=== PATIENT | female | born 1990 | race Caucasian/White ===

== ENCOUNTER 2020-06-29 16:34 | Outpatient (REF) | payer OTHER, SELFPAY ==
--- NOTE | ~2020-06-29 | XR_ITS ---
EXAMINATION: LEFT FOOT AND ANKLE X-RAY CLINICAL INFORMATION: Injury COMPARISON: None TECHNIQUE: 3 views of the left foot and 3 views of the left ankle FINDINGS: Left ankle: Bone alignment is normal. No fracture or dislocation is seen. The ankle mortise is normal. Soft tissues are normal. Left foot: Bone alignment is normal. No fracture or dislocation is seen. Joint spaces are normal. There is a small plantar calcaneal spur. Soft tissues are otherwise normal. XR/XR foot LT min 3V IMPRESSION: No fracture or dislocation.
--- NOTE | ~2020-06-29 | XR_ITS ---
EXAMINATION: LEFT FOOT AND ANKLE X-RAY CLINICAL INFORMATION: Injury COMPARISON: None TECHNIQUE: 3 views of the left foot and 3 views of the left ankle FINDINGS: Left ankle: Bone alignment is normal. No fracture or dislocation is seen. The ankle mortise is normal. Soft tissues are normal. Left foot: Bone alignment is normal. No fracture or dislocation is seen. Joint spaces are normal. There is a small plantar calcaneal spur. Soft tissues are otherwise normal. XR/XR ankle LT 2V IMPRESSION: No fracture or dislocation.
== END 2020-06-29 16:35 | disposition home or self-care (01) ==
LOC: HO.HMGCX 16:34
PROVIDERS: Visit Provider Nurse Practitioner Family
DX: S99.929A Unspecified injury of unspecified foot, initial encounter (principal); S99.919A Unspecified injury of unspecified ankle, initial encounter
CPT/HCPCS: 73600; 73630

== ENCOUNTER 2021-03-01 16:10 | Outpatient (REF) | payer OTHER, SELFPAY ==
--- NOTE | ~2021-03-01 | MR_ITS ---
EXAMINATION: MR BREAST WITHOUT AND WITH CONTRAST, BILATERAL CLINICAL INFORMATION: Six-month follow-up of probably benign bilateral findings. COMPARISON: MRI 12/01/2019 TECHNIQUE: Imaging was performed with a dedicated breast coil. Prior to the administration of contrast, bilateral axial T1 and bilateral axial T2 weighted sequences were obtained. After the uneventful administration of?10 mL of Gadavist, dynamic contrast-enhanced VIBRANT series through the breasts in the axial plane were performed. Subtracted images were performed and reviewed. A delayed sagittal sequence through both breasts was acquired. Additionally, CAD post-processing, including maximum intensity projections, 3-D reconstructions and kinetic analysis, were performed an independent workstation and reviewed by the interpreting radiologist is a portion of this exam. FINDINGS: The patient's fibroglandular tissue demonstrates diffuse moderate background parenchymal enhancement. LEFT BREAST: Stable T2 hyperintense focus of enhancement, left breast, 3:00, mid to posterior depth, consistent with an intramammary lymph node. The previously described foci of enhancement in the left breast are less conspicuous to not present on the current exam. No suspicious masslike or non-masslike enhancement. No abnormal skin thickening or nipple retraction. No abnormal architectural distortion. Review of the T2 weighted images demonstrates no fibrocystic changes or dilated ducts. Review of kinetic images reveals no additional findings. RIGHT BREAST: No persistent focus of enhancement in the right breast, 12:00. No suspicious masslike or non-masslike enhancement. No abnormal skin thickening or nipple retraction. No abnormal architectural distortion. Review of the T2 weighted images demonstrates no fibrocystic changes or dilated ducts. Review of kinetic images reveals no additional findings. There is no suspicious internal mammary chain or axillary adenopathy. Limited views of the chest and abdomen are unremarkable. MR/MR breast BI wo/w con IMPRESSION: The previously described probably benign findings or no longer seen or characterized to be benign on the current examination. No MR specific evidence of malignancy in either breast. ASSESSMENT: LEFT BREAST: BI-RADS 2 - Benign Findings. RIGHT BREAST: BI-RADS 1-Negative RECOMMENDATIONS: Clinical follow-up. Further breast MRI as risk factors dictate.
== END 2021-03-01 16:11 | disposition home or self-care (01) ==
LOC: HO.MRI 16:10
PROVIDERS: Visit Provider Surgery
DX: R92.8 Other abnormal and inconclusive findings on diagnostic imaging of breast (principal); N63.25 Unspecified lump in the left breast, overlapping quadrants; Z91.89 Other specified personal risk factors, not elsewhere classified
CPT/HCPCS: 77049; A9585

== ENCOUNTER 2021-05-03 16:00 | Outpatient (RCR) | payer OTHER, SELFPAY ==
--- NOTE | 2021-03-11 15:33 | MHC.PT.EP ---
[facility] [place] Office [place] Office [place] Office [address] Gabi Medina [address] [phone] F: [phone] F: [phone] F: [phone] F: [phone] Physical Therapy Plan of Care Date of Evaluation: Date of Surgery: Diagnosis: RIGHT SIDED LBP-PT FOR LUMBAR AND CORE STABILIZATION, HIP FLEXOR STRETCHING, GLUTE MED AND QUAD STRENGTHENING Assessment: 31 YO FEMALE REF TO PT FOR LBP W Rt SCIATICA, PROGRESSIVE x 2 MONTHS. 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 OBJECTIVE FINDINGS: DECR TRUNK AROM, (+) LUMBOPELVIC ASYMM, DECR STRENGTH IN HELENA HIP ROTAT AND CORE MM ((+) hamstring dominance), (+) SOFT TISSUE IRRIT IN Rt > Lt THLS PS MM, AND DECR POSTURAL AWARENESS. Pt HAS DECR NEEL TO INCR STANDING, SHE TENDS TO USE TRUNK FLEX VS FUNCT SQUAT W ADLS/ WORK TASKS, AND IS LIMITED W LIFTING HEAVIER OBJECTS FROM THE FLOOR. Pt DENIES B&B SIGNS/ SXS. SHE WOULD BENEFIT FROM PT TO ADDRESS THE ABOVE FINDINGS AND DEV SX/PAIN MGMT STRATEGIES. Frequency and Duration: The patient will be seen 2 x WK x 5 WKS Short Term Goals: Pt'S LBP DECR TO 2-07/07 AND Rt LE SXS DECR BY 75% IN 2 WKS Pt DEMON PROPER BODY MECH (FUNCT SQUAT TECHN ) W 3:3 SIMUL WORK TASKS-IE POSITIONING IN OR WELL OFFICE IN 3 WKS Pt INCR LUMBOPELVIC AND HIP IR/ER STRENGTH AND STAB -> WFL PELVIC SYMMETRY IN 3 WKS Pt DEMON WFL AROM TRUNK AND WFL Rt HS FLEXIB IN 2 WKS Care Home Goals: Pt INDEP W HEP AND PROGR STRENGTHENING EXER, SX MGMT STRATEGIES IN 5 WKS Pt INCREASE FUNCT MOB NEEL EVIDENT W IMPROVED OSWESTRY BY 5 POINTS IN 5 WKS Treatment Plan: Modalities to reduce pain, spasms and effusion. Manual therapy to restore motion and function. Therapeutic exercise to improve strength and flexibility. Neuromuscular re-education for posture and balance. Therapeutic activities to return to functional activities of daily living. Electronically signed by: Evelyne Wong PT Please sign and return to therapist. Thank you for your referral.
--- NOTE | 2021-06-16 10:38 | MHC.PT.DC ---
[facility] [place] Office [place] Office [place] Office [address] Gabi Medina [address] [phone] F: [phone] F: [phone] F: [phone] F: [phone] Physical Therapy Discharge Report Diagnosis: RIGHT SIDED LBP-PT FOR LUMBAR AND CORE STABILIZATION, HIP FLEXOR STRETCHING, GLUTE MED AND QUAD STRENGTHENING Date of Surgery: Date of Evaluation: 03/11/21 Date of Discharge: 06/16/21 Treatments to Date: 10 Cancellations to Date: 5 No Shows to Date: 1 Discharge Status: Improved Function Independent with HEP Discharge Summary: The patient overall reported little improvement with physical therapy intervention. She is independent with her home exercise program including thoracolumbar and pelvic stretching as well as core and pelvic stability exercises. She was educated on being mindful of her posture when in the OR and when sitting at work. She has not followed up with any further appointments in over a month. She is discharged from this physical therapy plan of care at this time. Electronically signed by: Denisse Hunt PT, DPT Please sign and return to therapist. Thank you for your referral.
== END 2021-06-16 10:38 | disposition home or self-care (01) ==
LOC: HO.PT 16:00
PROVIDERS: Visit Provider Physician Assistant
DX: M54.41 Lumbago with sciatica, right side (principal)
CPT/HCPCS: 97012; 97014; 97110; 97140; 97162

== ENCOUNTER 2022-03-20 16:16 | Outpatient (REF) | payer OTHER, SELFPAY ==
--- NOTE | ~2022-03-20 | MR_ITS ---
EXAMINATION: MR BREAST WITHOUT AND WITH CONTRAST, BILATERAL CLINICAL INFORMATION: High-risk for breast cancer, genetic mutation COMPARISON: 03/01/2021 TECHNIQUE: Imaging was performed with a dedicated breast coil. Prior to the administration of contrast, bilateral axial T1 and bilateral axial T2 weighted sequences were obtained. After the uneventful administration of?9 mL of Gadavist, dynamic contrast-enhanced VIBRANT series through the breasts in the axial plane were performed. Subtracted images were performed and reviewed. A delayed sagittal sequence through both breasts was acquired. Additionally, CAD post-processing, including maximum intensity projections, 3-D reconstructions and kinetic analysis, were performed an independent workstation and reviewed by the interpreting radiologist is a portion of this exam. FINDINGS: The patient's fibroglandular tissue demonstrates moderate background enhancement. LEFT BREAST: No suspicious masslike or non-masslike enhancement. No abnormal skin thickening or nipple retraction. No abnormal architectural distortion. Review of the T2 weighted images demonstrates no fibrocystic changes or dilated ducts. Review of kinetic images reveals no additional findings. RIGHT BREAST: No suspicious masslike or non-masslike enhancement. No abnormal skin thickening or nipple retraction. No abnormal architectural distortion. Review of the T2 weighted images demonstrates no fibrocystic changes or dilated ducts. Review of kinetic images reveals no additional findings. There is no suspicious internal mammary chain or axillary adenopathy. Limited views of the chest and abdomen are unremarkable. There has been no interval change. MR/MR breast BI wo/w con IMPRESSION: No MR specific evidence of malignancy. ASSESSMENT: LEFT BREAST: BI-RADS 1-Negative RIGHT BREAST: BI-RADS 1-Negative RECOMMENDATIONS: Yearly MRI as clinical risk factors dictate.
== END 2022-03-20 16:17 | disposition home or self-care (01) ==
LOC: HO.MRI 16:16
PROVIDERS: Visit Provider Surgery
DX: R92.2 Inconclusive mammogram (principal); Z91.89 Other specified personal risk factors, not elsewhere classified
CPT/HCPCS: 77049; A9585

== ENCOUNTER 2022-04-07 13:02 | Outpatient (REF) | payer OTHER, SELFPAY ==
--- NOTE | ~2022-04-07 | MM_ITS ---
EXAMINATION: MM SCREENING DIGITAL BREAST TOMOSYNTHESIS, BILATERAL CLINICAL INFORMATION: Age 32. TC score 20%. Family history of breast cancer. HOXB13 gene. COMPARISON: No prior mammography. Comparison is made with bilateral breast MRI 03/20/2022 (BI-RADS 1). TECHNIQUE: Digital breast tomosynthesis is performed in both the craniocaudal and mediolateral oblique views along with computer-aided detection (CAD). Synthesized 2D images are generated from the tomosynthesis. Additional exaggerated left CC and left MLO views are provided. FINDINGS: There are scattered areas of fibroglandular density (ACR BI-RADS breast composition Category b). The left CC views show subtle small asymmetric density anterior medial breast within 3 cm of nipple. There is no correlate on MLO view or on recent MRI. Finding is likely related to summation artifact. As this represents initial baseline mammography, patient will be recalled to fully characterize baseline appearance. The remainder of the breasts show no asymmetric density, mass, or architectural abnormality. There are no abnormal calcifications. The axilla and skin contours are unremarkable. MM/MM tomosynthesis screening BI IMPRESSION: Left: -Asymmetric density anterior medial breast within 3 cm of nipple, likely summation artifact. Right: -No mammographic evidence of malignancy. ASSESSMENT: BI-RADS 0: Incomplete - Need Additional Imaging Evaluation RECOMMENDATION: 1. Additional views of the left breast (spot CC). 2. Targeted ultrasound if warranted after review of the additional views. 3. Radiology department staff will contact the patient for additional imaging. This patient's information was entered into a reminder system with a target due date for their next mammogram.
== END 2022-04-07 13:03 | disposition home or self-care (01) ==
LOC: HO.MAMMO 13:02
PROVIDERS: PCP Family Medicine; Visit Provider Surgery
DX: Z12.31 Encounter for screening mammogram for malignant neoplasm of breast (principal)
CPT/HCPCS: 77063; 77067

== ENCOUNTER 2022-04-11 11:50 | Outpatient (REF) | payer OTHER, SELFPAY ==
--- NOTE | ~2022-04-11 | MM_ITS ---
EXAMINATION: MM DIAGNOSTIC DIGITAL BREAST TOMOSYNTHESIS, LEFT CLINICAL INFORMATION: Recall for high risk baseline screening for asymmetric density anterior medial left breast likely summation artifact. Age 32. Family history of breast cancer. HOXB13 gene. COMPARISON: Mammography: 04/07/2022 (baseline), bilateral breast MR 03/20/2022 (BI-RADS 1). TECHNIQUE: Digital breast tomosynthesis is performed. 2D images are generated from the tomosynthesis. The following views are obtained: Spot CC. FINDINGS: There are scattered areas of fibroglandular density (ACR BI-RADS breast composition Category b). The additional view demonstrates no persistent asymmetric density. There is normal-appearing fibroglandular pattern similar to the MR. No mass or architectural abnormality. Results are discussed with the patient at time of visit. MM/MM tomosynthesis added views L IMPRESSION: No mammographic evidence of malignancy. ASSESSMENT: BI-RADS 1: Negative RECOMMENDATION: Routine annual mammography screening and breast MR as clinical risk factors warrant. This patient's information was entered into a reminder system with a target due date for their next mammogram.
== END 2022-04-11 11:51 | disposition home or self-care (01) ==
LOC: HO.MAMMO 11:50
PROVIDERS: PCP Family Medicine; Visit Provider Surgery
DX: R92.8 Other abnormal and inconclusive findings on diagnostic imaging of breast (principal); Z91.89 Other specified personal risk factors, not elsewhere classified
CPT/HCPCS: 77061; 77065

== ENCOUNTER 2022-04-20 13:23 | Outpatient (REF) | payer OTHER, SELFPAY | END 2022-04-20 13:24 | disposition home or self-care (01) | LOC: HO.MAMMO 13:23 | PROVIDERS: Visit Provider Family Medicine | DX: R92.2 Inconclusive mammogram (principal) | CPT/HCPCS: 76641 ==

== ENCOUNTER 2022-10-17 12:11 | Outpatient (REF) | payer OTHER, SELFPAY ==
--- NOTE | ~2022-10-17 | MR_ITS ---
EXAMINATION: MR BREAST WITHOUT AND WITH CONTRAST, BILATERAL CLINICAL INFORMATION: High-risk screening. Genetic susceptibility to breast cancer. COMPARISON: 03/20/2022. 03/01/2021. 12/01/2019. HOXB13 gene mutation. Family history of breast cancer (2 aunts premenopausal). Dense breasts. TECHNIQUE: Imaging was performed with a dedicated breast coil. Prior to the administration of contrast, bilateral axial T1 and bilateral axial T2 weighted sequences were obtained. After the uneventful administration of?8.5 mL of Gadavist, dynamic contrast-enhanced VIBRANT series through the breasts in the axial plane were performed. Subtracted images were performed and reviewed. A delayed sagittal sequence through both breasts was acquired. Additionally, CAD post-processing, including maximum intensity projections, 3-D reconstructions and kinetic analysis, were performed an independent workstation and reviewed by the interpreting radiologist is a portion of this exam. FINDINGS: The breasts are comprised of heterogeneous, dense fibroglandular parenchyma. The tissue undergoes moderate background enhancement. LEFT BREAST: No suspicious mass, dominant non-mass enhancement or architectural distortion. Small masses previously noted at 3 o'clock and 9 o'clock are stable. Additional small scattered foci are either stable or decreased in conspicuity compared with 2020. A non-mass enhancement at 1 o'clock (series 105 image 38/108) has the appearance of a vascular structure. No skin thickening or nipple retraction. RIGHT BREAST: An oval circumscribed 4 mm focus at 10 o'clock, 1 cm from the nipple (series 105 image 61/108) has increased in conspicuity compared with prior exams. Focus is T2 bright but demonstrates type III rapid washout enhancement kinetics. Recommend MR directed diagnostic second look ultrasound and biopsy as indicated. There is no suspicious internal mammary chain or axillary adenopathy. Limited views of the chest and abdomen are unremarkable. MR/MR breast BI wo/w con IMPRESSION: A progressive dominant 4 mm focus in the retroareolar 10 o'clock position right breast 1 cm from the nipple. ASSESSMENT: LEFT BREAST: BI-RADS 2, benign findings. RIGHT BREAST: BI-RADS 4, suspicious finding. RECOMMENDATIONS: 1. Recommend MR directed diagnostic second look right breast ultrasound at 10 o'clock 1 cm from the nipple. 2. Recommend biopsy as indicated. Results called to referring clinician, Radha Martin RN at 9:30 on 10/19/2022.
== END 2022-10-17 12:12 | disposition home or self-care (01) ==
LOC: HO.MRI 12:11
PROVIDERS: PCP Family Medicine; Visit Provider Surgery
DX: Z12.31 Encounter for screening mammogram for malignant neoplasm of breast (principal); Z80.3 Family history of malignant neoplasm of breast; Z91.89 Other specified personal risk factors, not elsewhere classified
CPT/HCPCS: 77049; A9585

== ENCOUNTER 2023-04-20 13:16 | Outpatient (REF) | payer OTHER, SELFPAY ==
--- NOTE | ~2023-04-20 | MM_ITS ---
EXAMINATION: MM SCREENING DIGITAL BREAST TOMOSYNTHESIS, BILATERAL CLINICAL INFORMATION: Screening. Asymptomatic. COMPARISON: Mammography: This study is compared with prior exams dating back to 2021. TECHNIQUE: Digital breast tomosynthesis is performed in both the craniocaudal and mediolateral oblique views along with computer-aided detection (CAD). Synthesized 2D images are generated from the tomosynthesis. FINDINGS: There are scattered areas of fibroglandular density (ACR BI-RADS breast composition Category b). There are no significant masses, abnormal calcifications, or other abnormalities. There is a tissue marker in the superficial third of the upper outer quadrant of the right breast from prior benign percutaneous biopsy. MM/MM tomosynthesis screening BI IMPRESSION: No mammographic evidence of malignancy. ASSESSMENT: BI-RADS BI-RADS 2 - Benign Findings RECOMMENDATION: Routine annual mammography screening. 1 year F/U This examination should not preclude the clinical evaluation of a suspicious palpable abnormality. This patient's information was entered into a reminder system with a target due date for their next mammogram.
== END 2023-04-20 13:17 | disposition home or self-care (01) ==
LOC: HO.MAMMO 13:16
PROVIDERS: PCP Family Medicine; Visit Provider Surgery
DX: Z12.31 Encounter for screening mammogram for malignant neoplasm of breast (principal)
CPT/HCPCS: 77063; 77067

== ENCOUNTER → 2023-04-20 13:30 | Outpatient (BNV) | payer OTHER, SELFPAY | PROVIDERS: PCP Family Medicine; Visit Provider Radiology Diagnostic Radiology | DX: Z12.31 Encounter for screening mammogram for malignant neoplasm of breast (principal) | CPT/HCPCS: 77063; 77067 ==

== ENCOUNTER 2023-08-02 07:56 | Outpatient (REF) | payer OTHER, SELFPAY ==
[2023-08-02 08:24] LABS: Basophils Absolute Auto 0.1 X10*3/uL (0.0-0.2); Basophils Percent Auto 0.8 % (0-2); Eosinophils Absolute Auto 0.3 X10*3/uL (0.0-0.4); Eosinophils Percent Auto 3.3 % (0-4); Hematocrit 42.1 % (37.0-47.0); Hemoglobin 14.2 g/dl (12.0-16.0); Imm Gran Abs Auto 0.02 X10*3/uL (0.00-0.03); Imm Gran Pct Auto 0.3 % (0.0-0.4); Lymphocytes Absolute Auto 2.3 X10*3/uL (1.2-4.9); Lymphocytes Percent Auto 30.1 % (20-40); MANUAL DIFF FLAG NO; Mean Corpuscular HGB Conc 33.7 g/dl (31.0-35.0); Mean Corpuscular Hemoglobin 30.2 pg (27.0-33.0); Mean Corpuscular Volume 89.6 fL (80.0-98.0); Mean Platelet Volume 8.7 fL (9.4-12.3); Monocytes Absolute Auto 0.5 X10*3/uL (0.1-1.2); Monocytes Percent Auto 7.1 % (2-11); Neutrophils Absolute Auto 4.5 x10*3/uL (2.0-8.3); Neutrophils Percent Auto 58.4 % (45-73); Platelet Count 362 X10*3/uL (160-400); Red Cell Distribution Width 12.9 % (11.0-16.0); White Blood Count 7.6 X10*3/uL (4.8-10.8)
[2023-08-02 08:45] LABS: Alanine Aminotransferase 15 U/L (0-31); Albumin Level 3.9 g/dL (3.5-5.0); Alkaline Phosphatase 64 U/L (39-117); Anion Gap 9 (12-20); Aspartate Amino Transferase 16 U/L (5-31); Bilirubin Total 0.4 mg/dL (0.0-1.0); Blood Urea Nitrogen 15 mg/dL (9-16); C Reactive Protein 0.83 mg/dL (< or = 0.50); Calcium 9.2 mg/dL (8.4-10.2); Carbon Dioxide 24 mmol/L (22-29); Chloride 108 mmol/L (96-108); Cholesterol 179 mg/dL (<200); Estimated Glomerular Filt Rate > 60; Gamma Glutamyl Transpeptidase 19 U/L (7-33); Glucose Random 106 mg/dL (60-115); HDL Cholesterol 44 mg/dL (>40); Iron 69 mcg/dL (30-160); LDL Cholesterol Calculated 116 mg/dL (<100); Percent Iron Saturation 28 % (15-50); Potassium 3.9 mmol/L (3.3-5.1); Sodium 137 mmol/L (135-145); Total Iron Binding Capacity 250 mcg/dL (228-428); Total Protein 6.9 g/dL (6.5-8.0); Triglycerides 99 mg/dL (<150); Unsaturated Iron Binding 181 ug/dL
[2023-08-02 08:46] LABS: Parathyroid Hormone Intact 79.3 pg/mL (8.7-77.1)
[2023-08-02 09:01] LABS: Ferritin 87 ng/mL (10-122); Free T4 (Free Thyroxine) 0.92 ng/dL (0.71-1.85); Insulin 11 uU/mL (2-29); Thyroid Stimulating Hormone 0.72 uIU/mL (0.32-4.0); Vitamin D 25-OH Total 23.5 ng/mL (>30)
[2023-08-03 07:28] LABS: Triiodothyronine T3 Free 3.6 pg/mL (2.3-4.2)
[2023-08-03 08:34] LABS: DHEA Sulfate 158 mcg/dL (19-237); Lutenizing Hormone 3.4 mIU/mL
[2023-08-03 18:34] LABS: Homocysteine 8.9 umol/L (<10.4)
[2023-08-06 19:13] LABS: Testosterone, Free 2.8 pg/mL (0.1-6.4); Testosterone, Total 19 ng/dL (2-45)
[2023-08-06 20:08] LABS: Thyroglobulin Antibodies <1 IU/mL (< or = 1); Thyroid Peroxidase Antibodies 1 IU/mL (<9)
[2023-08-09 13:38] LABS: Methylmalonic Acid 102 nmol/L (87-318)
[2023-08-10 02:28] LABS: Estradiol Ultra Sensitive 124 pg/mL
[2023-08-11 15:58] LABS: Triiodothyronine T3 Reverse 18 ng/dL (8-25)
[2023-08-14 03:03] LABS: Dihydrotestosterone <10 ng/dL (< OR = 20)
[2023-08-15 01:44] LABS: Progesterone 9.5 ng/mL
== END 2023-08-02 07:57 | disposition home or self-care (01) ==
LOC: HO.LAB 07:56
PROVIDERS: PCP Family Medicine; Visit Provider Internal Medicine
DX: E03.9 Hypothyroidism, unspecified (principal); F32.81 Premenstrual dysphoric disorder; E28.2 Polycystic ovarian syndrome; D64.9 Anemia, unspecified; E55.9 Vitamin D deficiency, unspecified; E11.9 Type 2 diabetes mellitus without complications; E78.6 Lipoprotein deficiency; K76.0 Fatty (change of) liver, not elsewhere classified; R53.83 Other fatigue
CPT/HCPCS: 36415; 80053; 80061; 82306; 82627; 82642; 82670; 82728; 82977; 83001; 83002; 83090; 83525; 83540; 83921; 83970; 84144; 84402; 84403; 84439; 84443; 84481; 84482; 85025; 86140; 86376; 86800

== ENCOUNTER 2024-02-22 13:24 | Outpatient (REF) | payer OTHER, SELFPAY ==
--- NOTE | ~2024-02-22 | MR_ITS ---
EXAMINATION: MR BREAST WITHOUT AND WITH CONTRAST, BILATERAL CLINICAL INFORMATION: 33-year-old for high-risk screening, genetic susceptibility for breast cancer. Status post benign biopsy right breast. COMPARISON: MRI 10/17/2022 and 07/18/2019. TECHNIQUE: Imaging was performed with a dedicated breast coil. Prior to the administration of contrast, bilateral axial T1 and bilateral axial T2 weighted sequences were obtained. After the uneventful administration of 10 mL of Gadavist, dynamic contrast-enhanced VIBRANT series through the breasts in the axial plane were performed. Subtracted images were performed and reviewed. A delayed sagittal sequence through both breasts was acquired. Additionally, CAD post-processing, including maximum intensity projections, 3-D reconstructions and kinetic analysis, were performed an independent workstation and reviewed by the interpreting radiologist is a portion of this exam. FINDINGS: The patient's fibroglandular tissue demonstrates moderate background enhancement. LEFT BREAST: No suspicious masslike or non-masslike enhancement. No abnormal skin thickening or nipple retraction. No abnormal architectural distortion. Review of the T2 weighted images demonstrates no fibrocystic changes or dilated ducts. Review of kinetic images reveals no additional findings. RIGHT BREAST: The previously described mass at 10 o'clock, 1 cm from the nipple, is no longer visualized. This was biopsied. There is a susceptibility artifact in the area with no associated enhancement. No new suspicious masslike or non-masslike enhancement. No abnormal skin thickening or nipple retraction. No abnormal architectural distortion. Review of the T2 weighted images demonstrates no fibrocystic changes or dilated ducts. Review of kinetic images reveals no additional findings. There is no suspicious internal mammary chain or axillary adenopathy. Limited views of the chest and abdomen are unremarkable. MR/MR breast BI wo/w con IMPRESSION: No new MR findings suspicious of malignancy in either breast. ASSESSMENT: LEFT BREAST: BI-RADS 1-Negative RIGHT BREAST: BI-RADS 2 benign RECOMMENDATIONS: Routine mammographic imaging as per most recent study and MRI as per high-risk protocol. Electronically signed by: Rudy Riggs MD 03/18/2024 02:59 PM [facility]
[2024-02-22] MEDS: gadobutroL 10 ML VIAL IVPUSH (14:21)
== END 2024-02-22 13:25 | disposition home or self-care (01) ==
LOC: HO.MRI 13:24
PROVIDERS: PCP Family Medicine; Visit Provider Surgery
DX: R92.8 Other abnormal and inconclusive findings on diagnostic imaging of breast (principal); Z91.89 Other specified personal risk factors, not elsewhere classified; Z80.3 Family history of malignant neoplasm of breast
CPT/HCPCS: 77049; A9585

== ENCOUNTER 2024-07-17 15:40 | Outpatient (REF) | payer OTHER, SELFPAY ==
--- OUTSIDE RECORDS SUMMARY | 2024-07-17 17:51 | XMS_ITS | Encounter Summary ---
Author Organization [facility] Address [address] [place] [address] Care Team Providers Care Active Directory Administrator Name Role Phone Coretta Sam MD Primary Care Provider [phone] Gerry Duenas MD Primary Care Provider [phone] Reason for Visit * Reason Comments Other Request Order Encounter Details Date Type Department Care Team (Late Contact Info) Description 04/11/2022 Telephone [facility] Breast Care & Surgery [address] [phone] Diana Maloney MD [address] [place] [phone] Other (Request Order) Social History Tobacco Use Types Packs/Day Years Used Date Smoking Tobacco: Never Smokeless Tobacco: Never Alcohol Use Standard Drinks/Week Comments No 0 (1 standard drink = 0.6 oz pur e alcohol) PHQ-2 Answer Date Recorded PHQ-2 Total Score 0 02/19/2020 Sex and Gender Information Value Date Recorded Sex Assigned at Female 06/05/2024 12:16 PM EST Gender Identity Not on file Sexual Orientation Not on file documented as of this encounter Plan of Treatment Upcoming Encounters Date Type Department Care Team ([facility] Contact Info) Description 06/05/2025 1:30 PM EST Office Visit [facility] Breast [facility] & Surgery [address] [phone] Diana Maloney MD [address] [place] [phone] documented as of this encounter Visit Diagnoses Not on filedocumented in this encounter Care Teams Active Directory Administrator Relationship Specialty Start Date End Date Coretta Sam MD [address] [facility] [place] [address] PCP - General Pediatric, General 07/17/18 05/31/22 Gerry Duenas MD [address] [facility] [address] [place] [address] PCP - General Internal Medicine 06/01/22 documented as of this encounter
--- OUTSIDE RECORDS SUMMARY | 2024-07-17 17:51 | XMS_ITS | Encounter Summary ---
Author Organization [facility] Address [address] [place] [address] Care Team Providers Care Simulation Technician Name Role Phone Coretta Sam MD Primary Care Provider [phone] Gerry Duenas MD Primary Care Provider [phone] Reason for Visit * Reason Onset Date Comments Medication Refill 02/14/2022 Encounter Details Date Type Department Care Team (Late st Contact Info) Description 02/14/2022 Refill [facility] [address] [phone] Mirna Broussard, HOSPICE RN [address] [address] Migraine without aura, intractable, without status migrainosus Social History Tobacco Use Types Packs/Day Years [...] on file documented as of this encounter Miscellaneous Notes * Telephone Encounter - Abbe Saeed MD - 02/14/2022 10:10 AM EDT No recent dispenses in over 6 months. documented in this encounter Plan of Treatment Upcoming Encounters Date Type Department Care Team (Late st Contact Info) Description 06/05/2025 1:30 PM EST Office Visit [facility] Breast [facility] [place] [address] [place] [phone] Diana Maloney MD [address] [place] [address] documented as of this encounter Visit Diagnoses Diagnosis Migraine without aura, intractable, without status migrainosus documented in this encounter Care Teams Simulation Technician Relationship Specialty Start Date End Date Coretta Sam MD [address] [facility] [place] [address] [place] [address] PCP - General Pediatric, General 07/17/18 05/31/22 Gerry Duenas MD [address] [place] [address] [address] [place] [address] PCP - General Internal Medicine 06/01/22 documented as of this encounter
--- OUTSIDE RECORDS SUMMARY | 2024-07-17 17:51 | XMS_ITS | Encounter Summary ---
Author Organization [facility] Address [address] [place] [address] Care Team Providers Care City Assessor Name Role Phone Gerry Duenas MD Primary Care Provider [phone] Reason for Visit * Reason Comments Medication Refill Encounter Details Date Type Department Care Team (Late st Contact Info) Description 11/18/2022 Refill [facility] [address] [phone] Sherrie Cuellar MD [address] [place] [phone] Migraine without aura, intractable, without status migrainosus [...] EST Office Visit [facility] Breast Care & Surgery [place] [address] [place] [phone] Diana Maloney MD [address] [place] [address] documented as of this encounter Visit Diagnoses Diagnosis Migraine without aura, intractable, without status migrainosus documented in this encounter Care Teams City Assessor Relationship Specialty Start Date End Date Gerry Duenas MD [address] [facility] [address] [place] [address] PCP - General Internal Medicine 06/01/22 documented as of this encounter
--- OUTSIDE RECORDS SUMMARY | 2024-07-17 17:51 | XMS_ITS | Clinical Summary ---
Author Organization [facility] Address [address] [place] [address] Care Team Providers Care Bias Cutter Name Role Phone Unavailable Primary Care Provider Unavailabl e Social History Tobacco Use Types Packs/Day Years Used Date Smoking Tobacco: Never Assessed Sex and Gender Information Value Date Recorded Sex Assigned at Not on file Gender Identity Not on file Sexual Orientation Not on file Plan of Treatment Not on file
--- OUTSIDE RECORDS SUMMARY | 2024-07-17 17:51 | XMS_ITS | Encounter Summary ---
Author Organization [facility] Address [address] [place] [address] Care Team Providers Care First Responder Name Role Phone Coretta Sam MD Primary Care Provider [phone] Gerry Duenas MD Primary Care Provider [phone] Reason for Visit * Reason Comments Medication Refill Encounter Details Date Type Department Care Team (Late st Contact Info) Description 01/08/2021 Refill [facility] [address] [phone] Mirna Broussard, JUMPBASTING LINING BASTER [address] [address] Migraine without aura, intractable, without status migrainosus [...] encounter Miscellaneous Notes * Telephone Encounter - Allyson Mayberry - 01/10/2021 12:52 PM EDT Call to patient left message on voicemail to call office. documented in this encounter Plan of Treatment Upcoming Encounters Date Type Department Care Team (Late st Contact Info) Description 06/05/2025 1:30 PM EST Office Visit [facility] Breast Care & Surgery [place] [address] [place] [address] Diana Maloney MD [address] [place] [address] documented as of this encounter Visit Diagnoses Diagnosis Migraine without aura, intractable, without status migrainosus documented in this encounter Care Teams First Responder Relationship Specialty Start Date End Date Coretta Sam MD [address] [facility] [place] [address] [place] [address] PCP - General Pediatric, General 07/17/18 05/31/22 Gerry Duenas MD 175 [facility] 200 [place] [address] PCP - General Internal Medicine 06/01/22 documented as of this encounter
--- OUTSIDE RECORDS SUMMARY | 2024-07-17 17:51 | XMS_ITS | Encounter Summary ---
Author Organization [facility] Address [address] [place] [address] Care Team Providers Care Technical Professional Name Role Phone Gerry Duenas MD Primary Care Provider [phone] Reason for Visit * Reason Onset Date Comments Medication Refill 09/21/2022 Encounter Details Date Type Department Care Team ([facility] st Contact Info) Description 09/21/2022 Refill [facility] [address] [address] Sherrie Cuellar MD [facility] [address] [address] Migraine without aura, intractable, without status migrainosus [...] encounter Miscellaneous Notes * Telephone Encounter - Catia Newsome LPN - 09/26/2022 12:07 PM EDTSummary: Need an Appointment Refill request for sumatriptan. Patient has not been seen since 08/12/2021. Was asked to follow up in one year. No appointments booked. documented in this encounter Plan of Treatment Upcoming Encounters Date Type Department Care Team (Late st Contact Info) Description 06/05/2025 1:30 PM EST Office Visit [facility] Breast Care & Surgery [place] [address] [place] [address] Diana Maloney MD [address] [place] [address] documented as of this encounter Visit Diagnoses Diagnosis Migraine without aura, intractable, without status migrainosus documented in this encounter Care Teams Technical Professional Relationship Specialty Start Date End Date Gerry Duenas MD [address] [place] [address] [address] [place] [address] PCP - General Internal Medicine 06/01/22 documented as of this encounter
--- OUTSIDE RECORDS SUMMARY | 2024-07-17 17:51 | XMS_ITS | Encounter Summary ---
Author Organization [facility] Address [address] [place] [address] Care Team Providers Care Concert Manager Name Role Phone Coretta Sam MD Primary Care Provider [phone] Gerry Duenas MD Primary Care Provider [phone] Encounter Details Date Type Department Care Team (Late Contact Info) Description 08/12/2021 Scanned Document [facility] Headache [address] [place] [address] Sherrie Cuellar MD [address] [id number] Social History Tobacco Use Types Packs/Day Years [...] on file Sexual Orientation Not on file COVID-19 Exposure Response Date Recorded In the last 10 days, have yo u been in contact with someone who was confirmed or suspected to have Coronavirus/COVID-19? No / Unsure 08/12/2021 1:29 PM EDT documented as of this encounter Plan of Treatment Upcoming Encounters Date Type Department Care Team (Late Contact Info) Description 06/05/2025 1:30 PM EST Office Visit [facility] Breast Care & Surgery [place] [address] [place] [phone] Diana Maloney MD [address] [place] [address] documented as of this encounter Visit Diagnoses Not on filedocumented in this encounter Care Teams Concert Manager Relationship Specialty Start Date End Date Coretta Sam MD [address] [facility] [place] [address] PCP - General Pediatric, General 07/17/18 05/31/22 Gerry Duenas MD 175 [facility] [address] [place] [address] PCP - General Internal Medicine 06/01/22 documented as of this encounter
--- OUTSIDE RECORDS SUMMARY | 2024-07-17 17:51 | XMS_ITS | Encounter Summary ---
Author Organization [facility] Address [address] [place] [address] Care Team Providers Care Professor Of Theater Name Role Phone Coretta Sam MD Primary Care Provider Geryr Duenas MD Primary Care Provider [phone] Reason for Visit * Reason Onset Date Comments Medication Refill 02/14/2022 Encounter Details Date Type Department Care Team (Late st Contact Info) Description 02/14/2022 Refill [facility] Headache [address] [place] [address] Sherrie Cuellar MD [address] [place] [address] Migraine without aura, intractable, without status migrainosus [...] 06/05/2025 1:30 PM EST Office [facility] Breast [facility] Surgery [address] [phone] Diana Maloney MD [address] [place], [place] [address] documented as of this encounter Visit Diagnoses Diagnosis Migraine without aura, intractable, without status migrainosus documented in this encounter Care Teams Professor Of Theater Relationship Specialty Start Date End Date Coretta Sam MD 520 [facility] [address] PCP - General Pediatric, General 07/17/18 05/31/22 Gerry Duenas MD 175 [facility] [place] [address] [place] [address] PCP - General Internal Medicine 06/01/22 documented as of this encounter
--- OUTSIDE RECORDS SUMMARY | 2024-07-17 17:51 | XMS_ITS | Encounter Summary ---
Author Organization [facility] Address [address] [place] [address] Care Team Providers Care Gizzard Peeler Name Role Phone Gerry Duenas MD Primary Care Provider [phone] Reason for Visit * Reason Onset Date Comments Medication Refill 09/21/2022 Encounter Details Date Type Department Care Team (Late st Contact Info) Description 09/21/2022 Refill [facility] Headache [address] [place] [address] Sherrie Cuellar MD [address] [place] [address] Migraine without aura, intractable, without status migrainosus [...] Office Visit [facility] Breast Care & Surgery [place] [address] [place] [phone] Diana Maloney MD [address] [place], [place] [address] documented as of this encounter Visit Diagnoses Diagnosis Migraine without aura, intractable, without status migrainosus documented in this encounter Care Teams Gizzard Peeler Relationship Specialty Start Date End Date Gerry Duenas MD 175 [facility] [address] [place] [address] PCP - General Internal Medicine 06/01/22 documented as of this encounter
--- OUTSIDE RECORDS SUMMARY | 2024-07-17 17:51 | XMS_ITS | Encounter Summary ---
Author Organization [facility] Address [address] [place] [address] Care Team Providers Care Genetic Technologist Name Role Phone Coretta Sam MD Primary Care Provider [phone] Gerry Duenas MD Primary Care Provider [phone] Encounter Details Date Type Department Care Team (Late Contact Info) Description 02/19/2020 Scanned Document [address] [address] Mirna Broussard, MAGDA [address] [address] Social History Tobacco Use Types Packs/Day Years [...] Exposure Response Date Recorded In the last month, have you been in contact with someone who was confirmed or suspected to have Coronavirus / COVID-19? No / Unsure 02/19/2020 8:40 AM EDT documented as of this encounter Plan of Treatment Upcoming Encounters Date Type Department Care Team (Late Contact Info) Description 06/05/2025 1:30 PM EST Office Visit [facility] Breast Care & Surgery [place] [address] [place] [address] Diana Maloney MD [address] [place] [address] documented as of this encounter Visit Diagnoses Not on filedocumented in this encounter Care Teams Genetic Technologist Relationship Specialty Start Date End Date Coretta Sam MD 520 [facility] [place] [address] PCP - General Pediatric, General 07/17/18 05/31/22 Gerry Duenas MD [address] [address] PCP - General Internal Medicine 06/01/22 documented as of this encounter
--- OUTSIDE RECORDS SUMMARY | 2024-07-17 17:51 | XMS_ITS | Encounter Summary ---
Author Organization [facility] Address [address] [place] [address] Care Team Providers Care Keysmith Name Role Phone Gerry Duenas MD Primary Care Provider [phone] Reason for Visit * Reason Comments Medication Refill Encounter Details Date Type Department Care Team (Late st Contact Info) Description 09/05/2022 Refill [facility] [address] [address] Sherrie Cuellar MD [address] [place] [address] Migraine without aura, intractable, without status migrainosus [...] 1:30 PM EST Office Visit [facility] Breast Care & Surgery [place] [address] [place] [phone] Diana Maloney MD [address] [place] [address] documented as of this encounter Visit Diagnoses Diagnosis Migraine without aura, intractable, without status migrainosus documented in this encounter Care Teams Keysmith Relationship Specialty Start Date End Date Gerry Duenas MD 175 [facility] [address] [place] [address] PCP - General Internal Medicine 06/01/22 documented as of this encounter
--- OUTSIDE RECORDS SUMMARY | 2024-07-17 17:51 | XMS_ITS | Encounter Summary ---
Author Organization [facility] Address [address] [place] [address] Care Team Providers Care Hose Finisher Name Role Phone Coretta Sam MD Primary Care Provider [phone] Gerry Duenas MD Primary Care Provider [phone] Reason for Visit * Reason Comments Medication Refill Encounter Details Date Type Department Care Team (Late st Contact Info) Description 08/02/2021 Refill [facility] [address] [phone] Mirna Broussard APRN [address] [place] [address] Migraine without aura, intractable, without status migrainosus [...] encounter Miscellaneous Notes * Telephone Encounter - Nikunj Cornell APRN - 08/02/2021 2:06 PM EDT Thank you * Telephone Encounter - Cherelle Duggan - 08/02/2021 12:57 PM EDT Patient is already scheduled with Dr. Adenike Portillo for 08/12/21 for a follow up visit. documented in this encounter Plan of Treatment Upcoming Encounters Date Type Department Care Team (Late st Contact Info) Description 06/05/2025 1:30 PM EST Office Visit [facility] Breast Care & Surgery [place] [address] [place] [address] Diana Maloney MD [address] [place] [address] documented as of this encounter Visit Diagnoses Diagnosis Migraine without aura, intractable, without status migrainosus documented in this encounter Care Teams Hose Finisher Relationship Specialty Start Date End Date Coretta Sam MD 520 [facility] [place] [address] [place] [address] PCP - General Pediatric, General 07/17/18 05/31/22 Gerry Duenas MD 175 [facility] [address] [place] [address] PCP - General Internal Medicine 06/01/22 documented as of this encounter
--- OUTSIDE RECORDS SUMMARY | 2024-07-17 17:51 | XMS_ITS | Encounter Summary ---
Author Organization [facility] Address [address] [place] [address] Care Team Providers Care Campus Safety Officer Name Role Phone Coretta Sam MD Primary Care Provider [phone] Gerry Duenas MD Primary Care Provider [phone] Reason for Visit * Reason Comments Medication Refill Encounter Details Date Type Department Care Team (Late st Contact Info) Description 02/28/2021 Refill [facility] [address] [phone] Mirna Broussard, TIMBER WATCHMAN [address] [address] Migraine without aura, intractable, without status migrainosus [...] Description 06/05/2025 1:30 PM EST Office Visit [facility] Breast Care & Surgery [address] [address] Diana Maloney MD [address] [place] [address] documented as of this encounter Visit Diagnoses Diagnosis Migraine without aura, intractable, without status migrainosus documented in this encounter Care Teams Campus Safety Officer Relationship Specialty Start Date End Date Coretta Sam MD [address] [place] [address] PCP - General Pediatric, General 07/17/18 05/31/22 Gerry Duenas MD 175 [facility] [address] [place] [address] PCP - General Internal Medicine 06/01/22 documented as of this encounter
--- OUTSIDE RECORDS SUMMARY | 2024-07-17 17:51 | XMS_ITS | Clinical Summary ---
Author Organization [facility] Address [address] [place] [address] Care Team Providers Care Personal Banker Name Role Phone Gerry Duenas MD Primary Care Provider [phone] Allergies No known active allergies Medications Medication Sig Dispensed Refills Start Date End Date Status propranolol (INDERAL) 20 MG tabletIndications:E ssential tremor,Other headache syndrome Take 1 tablet (20 mg total) by mouth 2 (two) times a day. At breakfast and lunch 180 tablet 3 07/15/2018 Active Additional Information Patient taking differently:20 mg Oral 2 times daily,At breakfast and lunch; as needed, Reported on 04/15/2020 sertraline (ZOLOFT) 50 MG tablet Take 50 mg by mouth daily. Active levocetirizine (XYZAL) 5 MG tablet Take 5 mg by mouth every evening. Active ibuprofen (MOTRIN) 200 MG tablet Take 200 mg by mouth 4 times daily (every 6 hours) as needed for mild pain. Active aspirin-acetaminoph en-caffeine (EXCEDRIN MIGRAINE) 250-250-65 mg per tablet Take 1 tablet by mouth 4 times daily (every 6 hours) as needed for headaches. Active ubrogepant (Ubrelvy) 50 MG tabletIndications:M igraine without aura, intractable, without status migrainosus Take 1 tablet (50 mg total) by mouth once as needed for migraine. Take 1 tablet as needed for migraine, can repeat 1 tablet in 2 hours if needed. Max of 2 tablets in 24 hours. 10 tablet 11 08/12/2021 Active Nerve Stimulator (Nerivio) DeviceIndications:M igraine without aura, intractable, without status migrainosus Apply 1 Device topically daily as needed (headache). Apply one 45 minute treatment with device within 60 minutes of migraine onset 1 each 5 08/12/2021 Active SUMAtriptan (IMITREX) 100 MG tabletIndications:M igraine without aura, intractable, without status migrainosus Take 1 tablet (100 mg total) by mouth once as needed for migraine. May repeat in 2 hours if unresolved. Max of two tablets within 24 hours and max use of 2-3 days per week. NEED AN APPOINTMENT 9 tablet 2 06/21/2022 Active ondansetron (ZOFRAN) 4 MG tabletIndications:M igraine without aura, intractable, without status migrainosus Take 1 tablet (4 mg total) by mouth 2 times daily (every 12 hours) as needed for nausea or vomiting. 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 06/05/2024 Travel from Last 3 Months Family History Medical History Relation Name Comments Migraines Brother Diabetes Father Aneurysm Maternal Grandfather Diabetes Mother Migraines Mother Stroke Mother Breast cancer Paternal Aunt Cancer Paternal Aunt Cancer, breast Paternal Aunt Relation Name Status Comments Brother Alive Father Alive Maternal Grandfather Mother Alive Paternal Aunt Alive Diagnosed befo re the age of 50 Social History Tobacco Use Types Packs/Day Years [...] on file Sexual Orientation Not on file Last Filed Vital Signs Vital Sign Reading Time Taken Comments Blood Pressure 133/78 06/07/2023 2:25 PM EST Pulse 81 06/07/2023 2:25 PM EST Temperature 36.7 ??C (98.1 ??F) 06/01/2022 1:52 PM ES T Respiratory Rate 16 06/07/2023 2:25 PM EST Oxygen Saturation 98% 06/07/2023 2:25 PM EST Inhaled Oxygen Concentration - - Weight 85.3 kg (188 lb) 06/07/2023 2:25 PM EST Height 165.1 cm (5' 5 ) 06/07/2023 2:25 PM EST Body Mass Index 31.28 06/07/2023 2:25 PM EST Plan of Treatment Upcoming Encounters Date Type Department Care Team (Late st Contact Info) Description 06/05/2025 1:30 PM EST Office Visit [facility] Breast [facility] [place] [address] [place] [phone] Diana Maloney MD [address] [place] [address] Health Maintenance Due Date Last Done Comments Hepatitis C Virus Screening 1990 HIV Screening 2003 DTaP/Tdap/Td Vaccines (1 - Tdap) 2009 Hepatitis B Vaccines (1 of 3 - 19+ 3-dose series) 2009 Pap Smear (Ages 21-65) 2011 Influenza Vaccine 11/29/2023 04/01/2023, , 01/05/2019, Additional history exists COVID-19 Vaccine (2023- season) 2023 04/01/2023, 01/16/2022, 02/18/2021, Additional history exists HPV Vaccines Aged Out No longer eligi ble based on patient's age to complete this topic Pneumococcal Vaccine: Pediatric (0-5 Years) and At-Risk Patients (6 to 49 Years) Aged Out No longer eligible based on patient's age to complete this topic Care Teams Personal Banker Relationship Specialty Start Date End Date Gerry Duenas MD 175 [facility] 200 [place] [address] PCP - General Internal Medicine 06/01/22
== END 2024-07-17 15:41 | disposition home or self-care (01) ==
LOC: HO.MAMMO 15:40
PROVIDERS: PCP Family Medicine; Visit Provider Surgery
DX: Z12.31 Encounter for screening mammogram for malignant neoplasm of breast (principal)
CPT/HCPCS: 77063; 77067

== ENCOUNTER → 2024-07-17 15:45 | Outpatient (BNV) | payer OTHER, SELFPAY | PROVIDERS: PCP Family Medicine; Visit Provider Internal Medicine | DX: Z12.31 Encounter for screening mammogram for malignant neoplasm of breast (principal) | CPT/HCPCS: 77063; 77067 ==